=== PATIENT | male | born 1950 | race Caucasian/White ===

== ENCOUNTER 2017-07-16 21:03 | Emergency (ER) | payer OTHER ==
[2017-07-16] MEDS ORDERED: WATER FOR INJ,STERILE 10 ML IM ONE (21:04)
[2017-07-16] MEDS ORDERED: VECURONIUM 10 MG/VIAL IV ONE (21:04)
[2017-07-16] MEDS ORDERED: ETOMIDATE 20 MG/10 ML VIAL IV ONE (21:04)
[2017-07-16] MEDS ORDERED: LORazepam 2 MG/ML VIAL ONE (21:04)
--- OUTSIDE RECORDS SUMMARY | 2017-07-16 21:06 | XMS REPORT | Clinical Summary ---
:1950 Author Organization [facility] Address [address] [place] [address] Phone Care Team Providers Name Role Phone Unavailable Primary Care Provider Unavailable Allergies Active Allergy Reactions Severity Noted Date Comments Lisinopril Anaphylaxis High 07/27/2015 Amlodipine Anaphylaxis High 07/27/2015 Hydrochlorothiazide Hives 07/27/2015 Current Medications Prescription Sig. Disp. Refills Start Date End Date Status aspirin 81 MG EC Take 81 mg by Active tablet mouth daily. carvedilol (COREG) Take 25 mg by Active 3.125 MG tablet mouth 2 (two) times daily Takes 2 tab twice a day. losartan (COZAAR) Take 100 mg by Active 25 MG tablet mouth nightly . levETIRAcetam Take by mouth 2 Active (KEPPRA) 500 MG (two) times tablet daily. atorvastatin Take 80 mg by Active (LIPITOR) 10 MG mouth daily . tablet budesonide-formoter Inhale 2 puffs Active ol (SYMBICORT) by mouth via 160-4.5 inhaler 2 (two) mcg/actuation times daily. inhaler cholecalciferol, Take 50,000 Active vitamin D3, 50,000 Units by mouth unit Tab once a week. hydrOXYzine Take 25 mg by Active (ATARAX) 25 MG mouth daily as tablet needed (sleep). clopidogrel Take 75 mg by Active (PLAVIX) 75 mg mouth daily. tablet isosorbide Take 90 mg by Active mononitrate (IMDUR) mouth daily. 30 MG 24 hr tablet melatonin 3 mg Tab Take 10 mg by Active tablet mouth nightly. carvedilol (COREG) Take 2 tablets 60 tablet 1 08/22/2015 25 MG tablet (50 mg total) 7 by mouth 2 (two) times daily with breakfast and dinner. hydrALAZINE Take 1 tablet 90 tablet 1 08/22/2015 (APRESOLINE) 100 MG (100 mg total) 7 tablet by mouth 3 (three) times daily. DULoxetine Take 1 capsule 30 capsule 0 08/22/2015 (CYMBALTA) 20 MG (20 mg total) 7 capsule by mouth daily. isosorbide Take 1 tablet 30 tablet 0 08/22/2015 mononitrate (IMDUR) (60 mg total) 7 60 MG 24 hr tablet by mouth daily. losartan (COZAAR) Take 1 tablet 30 tablet 0 08/22/2015 100 MG tablet (100 mg total) 7 by mouth daily. NIFEdipine (ADALAT Take 1 tablet 30 tablet 0 08/22/2015 CC) 90 MG 24 hr (90 mg total) 7 tablet by mouth daily. isosorbide Take by mouth Discontinued mononitrate daily. 8 (ISMO,MONOKET) 10 MG tablet Active Problems Problem Noted Date Generalized tonic-clonic seizure ([facility]) 05/26/2017 Chest pain with moderate risk of acute coronary syndrome 05/26/2017 Hyponatremia 08/18/2015 Abdominal aortic aneurysm without rupture ([facility]) 08/17/2015 AAA (abdominal aortic aneurysm) ([facility]) 08/04/2015 PVD (peripheral vascular disease) ([facility]) 08/04/2015 CVA (cerebral vascular accident) ([facility]) 08/04/2015 HTN (hypertension) 08/04/2015 Hyperlipidemia Anxiety Encounters Date Type Specialty Care Team Description 05/26/2017 - Emergency General Internal Christiano Lopez Abdominal aortic 05/27/2017 Medicine MD Aldo aneurysm without Mary, Yashash D rupture ([facility]) (Primary Dx);Generalized tonic-clonic seizure ([facility]);Chest pain with moderate risk of acute coronary syndrome;Abdominal aortic aneurysm (AAA) without rupture ([facility]);Essential hypertension;Hyperlipid emia, unspecified hyperlipidemia type;Hyponatremia;JOAN (acute kidney injury) ([facility]);Cerebrovascular accident (CVA), unspecified mechanism ([facility]);PVD (peripheral vascular disease) ([facility]) 05/26/2017 Orders Only General Internal Medicine after 07/15/2016 Family History Medical History Relation Name Comments Cancer Father Cancer Mother Relation Name Status Comments Father Mother Social History Tobacco Use Types Packs/Day Years Used Date Former Smoker Quit: 07/26/1974 Smokeless Tobacco: Former User Alcohol Use Drinks/Week oz/Week Comments No Sex Assigned at Date Recorded Not on file Last Filed Vital Signs Vital Sign Reading Time Taken Blood Pressure 155/72 05/27/2017 11:21 AM CDT Pulse 61 05/27/2017 11:21 AM CDT Temperature 36.9 C (98.5 F) 05/27/2017 11:21 AM CDT Respiratory Rate 17 05/27/2017 11:21 AM CDT Oxygen Saturation 96% 05/27/2017 11:21 AM CDT Inhaled Oxygen Concentration - - Weight 99.8 kg (220 lb) 05/26/2017 10:53 AM CDT Height 177.8 cm (5' 10") 05/26/2017 10:53 AM CDT Body Mass Index 31.57 05/26/2017 10:53 AM CDT Plan of Treatment Health Maintenance Due Date Last Done Comments INFLUENZA VACCINE 11/26/2017 Results RHYTHM STRIP - SCAN (05/29/2017 8:30 AM)Calcium, Ionized (05/27/2017 4:00 AM) Component Value Ref Range Calcium, Ion 1.08 (L) 1.12 - 1.27 mmol/L pH, Blood 7.36 Specimen Performing Laboratory Blood [facility] [address] [address] CBC with platelet count + automated diff (05/27/2017 4:00 AM)Only the most recent of2 resultswithin the time period is included. Component Value Ref Range WBC 7.0 3.5 - 10.5 K/L RBC 4.05 (L) 4.63 - 6.08 M/L Hemoglobin 11.9 (L) 13.7 - 17.5 GM/DL Hematocrit 36.7 (L) 40.1 - 51.0 % MCV 90.6 79.0 - 92.2 fL MCH 29.4 25.7 - 32.2 pg MCHC 32.4 32.3 - 36.5 GM/DL RDW 12.8 11.6 - 14.4 % Platelets 199 150 - 450 K/CU MM MPV 10.1 9.4 - 12.4 fL nRBC 0 0 - 0 /100 WBC % Neutros 69 % % Lymphs 11 % % Monos 13 % % Eos 6 % % Baso 1 % # Neutros 4.82 1.78 - 5.38 K/L # Lymphs 0.73 (L) 1.32 - 3.57 K/L # Monos 0.91 (H) 0.30 - 0.82 K/L # Eos 0.42 0.04 - 0.54 K/L # Baso 0.08 0.01 - 0.08 K/L Immature Granulocytes-Relative 0 0 - 1 % Specimen Performing Laboratory Blood [address] [address] Troponin I (05/27/2017 4:00 AM)Only the most recent of2 resultswithin the time period is included. Component Value Ref Range Troponin I 0.03 0.00 - 0.03 ng/mL Specimen Performing Laboratory Blood [address] [address] Narrative Troponin I (TnI) levels must be interpreted in the context of the presenting symptoms and the clinical findings. Elevated TnI levels indicate myocardial damage, but are not specific for ischemic heart disease. Elevated TnI levels are seen in patients with other cardiac conditions (including myocarditis and congestive heart failure), and slight TnI elevations occur in patients with other conditions, including sepsis, renal failure, acidosis, acute neurological disease, and persistent tachyarrhythmia. Prothrombin time/INR (05/27/2017 4:00 AM) Component Value Ref Range Protime 14.5 11.7 - 14.7 seconds INR 1.1 <=5.9 Specimen Performing Laboratory Blood [address] [address] Narrative RECOMMENDED COUMADIN/WARFARIN INR THERAPY RANGES STANDARD DOSE: 2.0 - 3.0 Includes: PROPHYLAXIS for venous thrombosis, systemic embolization; TREATMENT for venous thrombosis and/or pulmonary embolus. HIGH RISK: Target INR is 2.5-3.5 for patients with mechanical heart valves. CBC with platelet count + automated diff (05/27/2017 4:00 AM)Only the most recent of2 resultswithin the time period is included. Specimen Performing Laboratory Blood Narrative The following orders were created for panel order CBC with platelet count + automated diff. Procedure Abnormality Status --------- ------ CBC with platelet count ...[[id number]]AbnormalFinal result Please view results for these tests on the individual orders. Magnesium (05/27/2017 4:00 AM) Component Value Ref Range Magnesium 2.5 1.6 - 2.6 mg/dL Specimen Performing Laboratory Blood [address] [address] Hepatic function panel (05/27/2017 4:00 AM) Component Value Ref Range Protein, Total 6.5 6.0 - 8.3 gm/dL Albumin 3.6 3.5 - 5.0 g/dL Total Bilirubin 0.5 0.2 - 1.2 mg/dL Bilirubin, Direct 0.3 0.1 - 0.5 mg/dL Alkaline Phosphatase 72 40 - 150 U/L AST 27 5 - 34 U/L ALT 25 6 - 55 U/L Specimen Performing Laboratory Blood [address] [address] Lipid panel (05/27/2017 4:00 AM) Component Value Ref Range Triglycerides 74 mg/dL Cholesterol 111 mg/dL HDL 34 mg/dL LDL Calculated 62 mg/dL Specimen Performing Laboratory Blood [address] [address] Narrative Triglyceride Reference Range: Low Risk <150 [id number] High Risk 200-499 Very High Risk>=500 Cholesterol Reference Range: Low Risk <200 Mojdnslxoe558-600 High Risk>240 HDL Cholesterol Reference Range: Low Risk >=60 High Risk <40 LDL Cholesterol Reference Range: Optimal<100 Near Ovzziep855-741 [id number] Jxeh475-726 Very High >=190 Basic metabolic panel (05/27/2017 4:00 AM)Only the most recent of2 resultswithin the time period is included. Component Value Ref Range Sodium 135 (L) 136 - 145 meq/L Potassium 4.0 3.5 - 5.1 meq/L Chloride 103 98 - 107 meq/L CO2 24 22 - 29 meq/L BUN 20 7 - 21 mg/dL Creatinine 1.40 (H) 0.57 - 1.25 mg/dL Glucose 132 (H) 70 - 105 mg/dL Calcium 8.6 8.4 - 10.2 mg/dL EGFR 51Comment: ESTIMATED GFR IS NOT ACCURATE mL/min/1.73 sq m CREATININE CLEARANCE IN PREDICTING GLOMERULAR FILTRATION RATE. ESTIMATED GFR IS NOT APPLICABLE FOR DIALYSIS PATIENTS. Specimen Performing Laboratory Blood [address] [address] Rapid drug screen, urine (05/26/2017 5:44 PM) Component Value Ref Range Barbiturate Screen Negative Negative Benzodiazepine Screen Positive (A) Negative Cocaine (Metab.) Screen Negative Negative Methadone Screen Negative Negative Opiate Screen Positive (A) Negative Cannabinoid Screen Negative Negative Amph/Methamph Screen Negative Negative Phencyclidine Screen Negative Negative Oxycodone Screen Negative Negative Specimen Performing Laboratory Urine - Urine, Voided [address] [address] Narrative DRUGCUTOFF CONC. Cocaine 300 ng/mL Qhntrxnddii40 ng/mL Plslxftrjkyfln361 ng/mL Barbiturate 200 ng/mL Zrgeoeckypoel50 ng/mL Cebzvy324 ng/mL Methadone 300 ng/mL Amphetamine/ 1000 ng/mL Methamphetamine Oxycodone 300 ng/mL This assay provides an unconfirmed qualitative test result for the clinical management of patients in emergency situations. Chain of custody not maintained. Some sbdv-enb-wqsharo medications, as well as adulterants, may cause inaccurate results. Clinical correlation should be applied. A more comprehensive drug screen or confirmation of a detected drug may be performed upon request. Urinalysis w/Microscopic (05/26/2017 5:44 PM) Component Value Ref Range Color, UA Light Yellow Clarity, UA Clear Specific Whitman, UA 1.010 1.001 - 1.035 pH, UA 5.5 5.0 - 8.0 Protein, UA 10 mg/dL (A) Negative Glucose, UA Negative Negative Ketones, UA Negative Negative Bilirubin, UA Negative Negative Blood, UA Negative Negative Nitrite, UA Negative Negative Leukocytes, UA Negative Negative Urobilinogen, UA 0.2 0.2 - 1.0 mg/dL RBC, UA 5 /HPF WBC, UA 1 /HPF Squam Epithel, UA <1 /HPF Specimen Source Urine, Voided Specimen Performing Laboratory Urine - Urine, Voided [address] [address] XR chest 1 view portable / bedside (05/26/2017 5:32 PM) Specimen Performing Laboratory GE RIS Narrative FINAL REPORT TECHNIQUE: Frontal view of the chest. INDICATION: 66-year-old man with seizures. COMPARISON: Chest radiographs 07/27/2015. FINDINGS: LINES/TUBES: Implanted cardiac device in the soft tissues of the left chest with intact leads which terminate in the expected regions of the right atrium and right ventricle. LUNGS: Mild prominence of interstitial markings bilaterally. Streaky atelectasis in both lung bases. Azygous fissure, normal variant. PLEURA: No pneumothorax or significant pleural effusion. HEART AND MEDIASTINUM: The cardiomediastinal silhouette is enlarged. Ectatic/tortuous thoracic aorta. SOFT TISSUES AND BONES: Degenerative changes of the visualized spine. Soft tissues are unremarkable. IMPRESSION: No acute cardiopulmonary abnormalities. Signed: Jamin Odell MD Report Verified Date/Time:05/26/2017 17:40:45 Reading Location: [facility] C013Y CT Body Reading Room Procedure Note Interface, External Ris In - 05/26/2017 5:43 PM CDT FINAL REPORT TECHNIQUE: Frontal view of the chest. INDICATION: 66-year-old man with seizures. COMPARISON: Chest radiographs 07/27/2015. FINDINGS: LINES/TUBES: Implanted cardiac device in the soft tissues of the left chest with intact leads which terminate in the expected regions of the right atrium and right ventricle. LUNGS: Mild prominence of interstitial markings bilaterally. Streaky atelectasis in both lung bases. Azygous fissure, normal variant. PLEURA: No pneumothorax or significant pleural effusion. HEART AND MEDIASTINUM: The cardiomediastinal silhouette is enlarged. Ectatic/tortuous thoracic aorta. SOFT TISSUES AND BONES: Degenerative changes of the visualized spine. Soft tissues are unremarkable. IMPRESSION: No acute cardiopulmonary abnormalities. Signed: Jamin Odell MD Report Verified Date/Time: 05/26/2017 17:40:45 Reading Location: [facility] [address] Body Reading Room brain without IV contrast (05/26/2017 2:26 PM) Specimen Performing Laboratory RIS Narrative FINAL REPORT CT head without contrast. Reason for exam: Seizures new or progressive Comparisons: No priors Discussion: Multiple axial CT images of the head are provided without contrast evaluated in brain and bone windows. This exam was performed according to our departmental dose optimization program which includes automated exposure control, adjustment of the mA and/or kV according to patient's size and/or use of iterative reconstructive technique. There is a old left occipital and medial temporal lobe infarct, in [employer] territory. A small to moderate volume left frontal lobe infarct is also noted. The varma-white differentiation is otherwise maintained. Old lacunar infarcts in the left caudate, thalamus as well as a tiny old left cerebellar infarct are also present. There is no CT evidence of intracranial hemorrhage, mass-effect, hydrocephalus, shift, or extra-axial collections. There is intracranial vascular calcification The visualized orbital contents, bones and surrounding soft tissues are unremarkable. There is mild mucosal thickening in the right maxillary sinus. The visualized paranasal sinuses, and the tympanomastoid cavities are otherwise clear. Impressions: No CT evidence of acute intracranial process. Chronic ischemic changes as described. Signed: Leonie Melo MD Report Verified Date/Time:05/26/2017 14:49:24 Reading Location: [address] Neuro Reading Room Procedure Note Interface, External Ris In - 05/26/2017 2:51 PM CDT FINAL REPORT CT head without contrast. Reason for exam: Seizures new or progressive Comparisons: No priors Discussion: Multiple axial CT images of the head are provided without contrast evaluated in brain and bone windows. This exam was performed according to our departmental dose optimization program which includes automated exposure control, adjustment of the mA and/or kV according to patient's size and/or use of iterative reconstructive technique. There is a old left occipital and medial temporal lobe infarct, in [employer] territory. A small to moderate volume left frontal lobe infarct is also noted. The varma-white differentiation is otherwise maintained. Old lacunar infarcts in the left caudate, thalamus as well as a tiny old left cerebellar infarct are also present. There is no CT evidence of intracranial hemorrhage, mass-effect, hydrocephalus, shift, or extra-axial collections. There is intracranial vascular calcification The visualized orbital contents, bones and surrounding soft tissues are unremarkable. There is mild mucosal thickening in the right maxillary sinus. The visualized paranasal sinuses, and the tympanomastoid cavities are otherwise clear. Impressions: No CT evidence of acute intracranial process. Chronic ischemic changes as described. Signed: Leonie Melo MD Report Verified Date/Time: 05/26/2017 14:49:24 Reading Location: [facility] C013V Neuro Reading Room 12 lead (05/26/2017 1:11 PM) Specimen Performing Laboratory GE MUSE Narrative Ventricular Rate 71 BPM Atrial Rate 71 BPM P-R Interval 218 ms QRS Duration 68 ms Q-T Interval 390 ms QTC Calculation(Bazett) 423 ms P [place] 46 degrees R [place] 9 degrees T [place] 31 degrees Poor data quality, interpretation may be adversely affected Sinus rhythm with 1st degree A-V block Otherwise normal ECG When compared with ECG of 17-AUG-2015 00:02, [place] interval has increased Nonspecific T wave abnormality has replaced inverted T waves in Lateral leads Confirmed by MD STALLWORTH MAJID ([id number]) on 05/27/2017 10:56:40 AM Procedure Note Interface, External Ris In - 05/27/2017 10:56 AM CDT Ventricular Rate 71 BPM Atrial Rate 71 BPM P-R Interval 218 ms QRS Duration 68 ms Q-T Interval 390 ms QTC Calculation(Bazett) 423 ms P [place] 46 degrees R [place] 9 degrees T [place] 31 degrees Poor data quality, interpretation may be adversely affected Sinus rhythm with 1st degree A-V block Otherwise normal ECG When compared with ECG of 17-AUG-2015 00:02, [place] interval has increased Nonspecific T wave abnormality has replaced inverted T waves in Lateral leads Confirmed by MD STALLWORTH MAJID ([id number]) on 05/27/2017 10:56:40 AM after 07/15/2016
--- OUTSIDE RECORDS SUMMARY | 2017-07-16 21:06 | XMS REPORT ---
:1950 [facility] [address] [place] [id number] Care Team Providers Name Role Phone SAHARA DICKENS Unavailable Unavailable Problems This patient has no known problems. Allergies, Adverse Reactions, Alerts This patient has no known allergies or adverse reactions. Medications This patient has no known medications. Results Test Description Test Time Test Comments Text Results Atomic Results Result Comments CALCIUM, IONIZED 2017-05-27 06:28:00 Test Item Value Reference Range Comments CALCIUM IONIZED (BEAKER) (test bplt=337) 1.08 mmol/L 1.12-1.27 PH, BLOOD (BEAKER) (test nqmi=7562) 7.36 [id number] 04:50:00 Test Item Value Reference Range Comments MAGNESIUM (BEAKER) (test hvyf=434) 2.5 mg/dL 1.6-2.6 BASIC METABOLIC [id number] 04:50:00 Test Item Value Reference Range Comments SODIUM (BEAKER) (test 135 meq/L 136-145 uybz=553) POTASSIUM (BEAKER) (test 4.0 meq/L 3.5-5.1 jdct=493) CHLORIDE (BEAKER) (test 103 meq/L 98-107 cctc=001) CO2 (BEAKER) (test 24 meq/L 22-29 bvkf=998) BLOOD UREA NITROGEN 20 mg/dL 7-21 (BEAKER) (test jolv=652) CREATININE (BEAKER) (test 1.40 mg/dL 0.57-1.25 hckh=517) GLUCOSE RANDOM (BEAKER) 132 mg/dL 70-105 (test invb=515) CALCIUM (BEAKER) (test 8.6 mg/dL 8.4-10.2 mzqe=942) EGFR (BEAKER) (test 51 mL/min/1.73 sq m ESTIMATED GFR IS NOT dbzi=0352) ACCURATE CREATININE CLEARANCE IN PREDICTING GLOMERULAR FILTRATION RATE. ESTIMATED GFR IS NOT APPLICABLE FOR DIALYSIS PATIENTS. LIPID [id number] 04:50:00 Test Item Value Reference Range Comments TRIGLYCERIDES (BEAKER) (test jkcv=127) 74 mg/dL CHOLESTEROL (BEAKER) (test gted=223) 111 mg/dL HDL CHOLESTEROL (BEAKER) (test ulcs=303) 34 mg/dL LDL CHOLESTEROL CALCULATED (BEAKER) (test 62 mg/dL mpws=541) Triglyceride Reference Range: Low Risk <150 Borderline 150- 199 High Risk 200-499 Very High Risk >=500Cholesterol Reference Range: Low Risk <200 Borderline 200-239 High Risk > 240HDL Cholesterol Reference Range: Low Risk >=60 High Risk <40LDL Cholesterol Reference Range: Optimal <100 Near Optimal 100-129 Borderline 130-159 High 160-189 Very High >=190HEPATIC FUNCTION [id number] 04:50:00 Test Item Value Reference Range Comments TOTAL PROTEIN (BEAKER) (test dhev=627) 6.5 gm/dL 6.0-8.3 ALBUMIN (BEAKER) (test apwx=9716) 3.6 g/dL 3.5-5.0 BILIRUBIN TOTAL (BEAKER) (test zywd=508) 0.5 mg/dL 0.2-1.2 BILIRUBIN DIRECT (BEAKER) (test cggp=387) 0.3 mg/dL 0.1-0.5 ALKALINE PHOSPHATASE (BEAKER) (test ormz=714) 72 U/L 40-150 AST (SGOT) (BEAKER) (test flug=376) 27 U/L 5-34 ALT (SGPT) (BEAKER) (test yrea=448) 25 U/L 6-55 TROPONIN [id number] 04:49:00 Test Item Value Reference Range Comments TROPONIN I (BEAKER) (test vipt=418) 0.03 ng/mL 0.00-0.03 Troponin I (TnI) levels must be interpreted [...] failure, acidosis, acute neurological disease, and persistent tachyarrhythmia.PROTHROMBIN [id number] 04:19:00 Test Item Value Reference Range Comments PROTIME (BEAKER) (test volk=483) 14.5 seconds 11.7-14.7 INR (BEAKER) (test qgnd=434) 1.1 <=5.9 RECOMMENDED COUMADIN/WARFARIN INR THERAPY RANGESSTANDARD DOSE: 2.0 - 3.0 Includes: PROPHYLAXIS forvenous thrombosis, systemic embolization; TREATMENT for venous thrombosis and/or pulmonary embolus.HIGH RISK: Target INR is 2.5-3.5 for patients with mechanical heart valves.CBC W/PLT COUNT & AUTO [id number] 04:14:00 Test Item Value Reference Range Comments WHITE BLOOD CELL COUNT (BEAKER) (test twtt=465) 7.0 K/ L 3.5-10.5 RED BLOOD CELL COUNT (BEAKER) (test updr=098) 4.05 M/ L 4.63-6.08 HEMOGLOBIN (BEAKER) (test lcba=602) 11.9 GM/DL 13.7-17.5 HEMATOCRIT (BEAKER) (test yvkw=301) 36.7 % 40.1-51.0 MEAN CORPUSCULAR VOLUME (BEAKER) (test kbzi=246) 90.6 fL 79.0-92.2 MEAN CORPUSCULAR HEMOGLOBIN (BEAKER) (test 29.4 pg 25.7-32.2 zgtd=948) MEAN CORPUSCULAR HEMOGLOBIN CONC (BEAKER) (test 32.4 GM/DL 32.3-36.5 wgtj=960) RED CELL DISTRIBUTION WIDTH (BEAKER) (test 12.8 % 11.6-14.4 dfiv=075) PLATELET COUNT (BEAKER) (test ymhd=339) 199 K/CU MM 150-450 MEAN PLATELET VOLUME (BEAKER) (test bfjt=054) 10.1 fL 9.4-12.4 NUCLEATED RED BLOOD CELLS (BEAKER) (test 0 /100 WBC 0-0 eslq=873) NEUTROPHILS RELATIVE PERCENT (BEAKER) (test 69 % sxgt=969) LYMPHOCYTES RELATIVE PERCENT (BEAKER) (test 11 % onqf=614) MONOCYTES RELATIVE PERCENT (BEAKER) (test 13 % dwki=217) EOSINOPHILS RELATIVE PERCENT (BEAKER) (test 6 % pvrb=787) BASOPHILS RELATIVE PERCENT (BEAKER) (test 1 % pmeh=844) NEUTROPHILS ABSOLUTE COUNT (BEAKER) (test 4.82 K/ L 1.78-5.38 vqkh=739) LYMPHOCYTES ABSOLUTE COUNT (BEAKER) (test 0.73 K/ L 1.32-3.57 fnwf=018) MONOCYTES ABSOLUTE COUNT (BEAKER) (test 0.91 K/ L 0.30-0.82 eydc=194) EOSINOPHILS ABSOLUTE COUNT (BEAKER) (test 0.42 K/ L 0.04-0.54 hijp=484) BASOPHILS ABSOLUTE COUNT (BEAKER) (test 0.08 K/ L 0.01-0.08 jjff=442) IMMATURE GRANULOCYTES-RELATIVE PERCENT (BEAKER) 0 % 0-1 (test vedf=2038) TROPONIN [id number] 18:23:00 Test Item Value Reference Range Comments TROPONIN I (BEAKER) (test wnyt=091) 0.02 ng/mL 0.00-0.03 Troponin I (TnI) levels must be interpreted [...] failure, acidosis, acute neurological disease, and persistent tachyarrhythmia.URINALYSIS W/ [id number] 18: 19:00 Test Item Value Reference Range Comments COLOR (BEAKER) (test pvfv=451) Light Yellow CLARITY (BEAKER) (test cyzb=216) Clear SPECIFIC GRAVITY UA (BEAKER) (test jmoy=933) 1.010 1.001-1.035 PH UA (BEAKER) (test ilbj=561) 5.5 5.0-8.0 PROTEIN UA (BEAKER) (test rxyj=898) 10 mg/dL Negative GLUCOSE UA (BEAKER) (test ojjx=722) Negative Negative KETONES UA (BEAKER) (test eyyb=676) Negative Negative BILIRUBIN UA (BEAKER) (test vfne=191) Negative Negative BLOOD UA (BEAKER) (test mdft=647) Negative Negative NITRITE UA (BEAKER) (test kqaj=408) Negative Negative LEUKOCYTE ESTERASE UA (BEAKER) (test twan=353) Negative Negative UROBILINOGEN UA (BEAKER) (test ovhz=055) 0.2 mg/dL 0.2-1.0 RBC UA (BEAKER) (test vudk=384) 5 /HPF WBC UA (BEAKER) (test euiu=134) 1 /HPF SQUAMOUS EPITHELIAL (BEAKER) (test ilmn=819) < /HPF SOURCE(BEAKER) (test tkli=2732) Urine, Voided RAPID DRUG SCREEN, [id number] 18:19:00 Test Item Value Reference Range Comments BARBITURATE URINE (BEAKER) (test bdxc=061) Negative Negative BENZODIAZEPINE SCREEN URINE (BEAKER) (test Positive Negative voan=147) COCAINE (METAB.) SCREEN (BEAKER) (test qrzr=8016) Negative Negative METHADONE SCREEN (BEAKER) (test cbgq=8187) Negative Negative OPIATE SCREEN URINE (BEAKER) (test vbbn=059) Positive Negative CANNABINOID SCREEN URINE (BEAKER) (test tjsl=285) Negative Negative AMPH/METHAMPH SCREEN (BEAKER) (test rwws=0069) Negative Negative PHENCYCLIDINE SCREEN URINE (BEAKER) (test mjgo=577) Negative Negative OXYCODONE SCREEN URINE (BEAKER) (test wchb=2221) Negative Negative DRUG CUTOFF CONC.Cocaine 300 ng/mL Cannabinoid 50 ng/mL Benzodiazepine 200 ng/mLBarbiturate 200 ng/ mLPhencyclidine 25 ng/mLOpiate 300 ng/mLMethadone 300 ng/mLAmphetamine/ 1000 ng/mL MethamphetamineOxycodone 300 ng/mLThis assay provides an unconfirmed qualitative test result for the clinical management of patients in emergency situations. Chain of custody not maintained. Some disb-wja-chpvikv medications, as well as adulterants, may cause inaccurate results. Clinical correlation should be applied. A more comprehensive drug screen or confirmation of a detected drug may be performed upon request.RAD, CHEST, 1 VIEW, NON [id number] 17:40:00Reason for exam:-&gt ;SEIZURESShould this be performed at the bedside?->YesFINAL REPORT TECHNIQUE: Frontal view of the chest. INDICATION: 66-year-old man with seizures. COMPARISON: Chest radiographs 07/27/2015. FINDINGS: LINES/TUBES: Implanted cardiac device in the soft tissues of the left chest with intact leads which terminate in the expected regionsof the right atrium and right ventricle. LUNGS: Mild prominence of interstitial markings bilaterally. Streaky atelectasis in both lung bases. Azygous fissure, normal variant. PLEURA: No pneumothorax orsignificant pleural effusion. HEART AND MEDIASTINUM: The cardiomediastinal silhouette is enlarged. Ectatic/tortuous thoracic aorta. SOFT TISSUES AND BONES: Degenerative changes of the visualized spine.Soft tissues are unremarkable. IMPRESSION:No acute cardiopulmonary abnormalities. Signed: Jamin Odell MDReport Verified Date/Time: 05/26/2017 17:40:45 Reading Location: [facility] C0Y CT Body Reading Room CT, BRAIN, WITHOUT [id number] 14 :49:00Reason for exam:->SEIZURESWhat is the patient's sedation requirement?-& gt;No SedationFINAL REPORT CT head without contrast. Reason for exam: Seizures new or progressive Comparisons: No priorsDiscussion: Multiple axial CT images of the head are provided without contrast evaluated in brain and bone windows. This exam was performed according to our departmental dose optimization program which includes automated exposure control, adjustment of the mA and/or kV according to patient's size and/or use of iterative reconstructive technique. 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 A small to moderate volume left frontal lobe infarct is also noted. The varma-white differentiation is otherwise maintained. Old lacunar infarcts in the left caudate, thalamus as well as a tiny old left cerebellar infarct are also present. There isno CT evidence of intracranial hemorrhage, mass-effect, hydrocephalus, shift, or extra-axial collections. There is intracranial vascular calcification The visualized orbital contents, bones and surrounding soft tissues are unremarkable. There is mild mucosal thickening in the right maxillary sinus. The visualized paranasal sinuses, and the tympanomastoid cavities are otherwise clear. Impressions: NoCT evidence of acute intracranial process. Chronic ischemic changes as described. Signed: Leonie Melo MDReport Verified Date/Time: 05/26/2017 14:49:24 Reading Location: [facility] C013V Neuro Reading Room Electronically signed by: LEONIE MELO M.D. on 02:49 PMTHE [facility] METABOLIC [id number] 12:04:00 Test Item Value Reference Range Comments SODIUM (BEAKER) (test 135 meq/L 136-145 pzdr=609) POTASSIUM (BEAKER) (test 4.0 meq/L 3.5-5.1 mtli=145) CHLORIDE (BEAKER) (test 98 meq/L 98-107 mslw=212) CO2 (BEAKER) (test 20 meq/L 22-29 wjyb=515) BLOOD UREA NITROGEN 23 mg/dL 7-21 (BEAKER) (test qpgl=020) CREATININE (BEAKER) (test 1.40 mg/dL 0.57-1.25 ucgd=037) GLUCOSE RANDOM (BEAKER) 177 mg/dL 70-105 (test mwsv=808) CALCIUM (BEAKER) (test 9.3 mg/dL 8.4-10.2 xfqo=870) EGFR (BEAKER) (test 51 mL/min/1.73 sq m ESTIMATED GFR IS NOT ktgw=6805) ACCURATE CREATININE CLEARANCE IN PREDICTING GLOMERULAR FILTRATION RATE. ESTIMATED GFR IS NOT APPLICABLE FOR DIALYSIS PATIENTS. CBC W/PLT COUNT & AUTO [id number] 11:53:00 Test Item Value Reference Range Comments WHITE BLOOD CELL COUNT (BEAKER) (test evxj=554) 8.5 K/ L 3.5-10.5 RED BLOOD CELL COUNT (BEAKER) (test xtks=727) 4.37 M/ L 4.63-6.08 HEMOGLOBIN (BEAKER) (test iznz=269) 12.9 GM/DL 13.7-17.5 HEMATOCRIT (BEAKER) (test fckz=781) 39.6 % 40.1-51.0 MEAN CORPUSCULAR VOLUME (BEAKER) (test plep=383) 90.6 fL 79.0-92.2 MEAN CORPUSCULAR HEMOGLOBIN (BEAKER) (test 29.5 pg 25.7-32.2 yzvj=231) MEAN CORPUSCULAR HEMOGLOBIN CONC (BEAKER) (test 32.6 GM/DL 32.3-36.5 txbc=952) RED CELL DISTRIBUTION WIDTH (BEAKER) (test 12.6 % 11.6-14.4 xlqu=168) PLATELET COUNT (BEAKER) (test qnnh=604) 228 K/CU MM 150-450 MEAN PLATELET VOLUME (BEAKER) (test putu=608) 10.1 fL 9.4-12.4 NUCLEATED RED BLOOD CELLS (BEAKER) (test 0 /100 WBC 0-0 jqxa=533) NEUTROPHILS RELATIVE PERCENT (BEAKER) (test 81 % ztcq=492) LYMPHOCYTES RELATIVE PERCENT (BEAKER) (test 6 % ypiy=617) MONOCYTES RELATIVE PERCENT (BEAKER) (test 7 % fzen=356) EOSINOPHILS RELATIVE PERCENT (BEAKER) (test 5 % rrsn=044) BASOPHILS RELATIVE PERCENT (BEAKER) (test 1 % umph=252) NEUTROPHILS ABSOLUTE COUNT (BEAKER) (test 6.92 K/ L 1.78-5.38 auad=044) LYMPHOCYTES ABSOLUTE COUNT (BEAKER) (test 0.48 K/ L 1.32-3.57 jwkr=615) MONOCYTES ABSOLUTE COUNT (BEAKER) (test 0.59 K/ L 0.30-0.82 ixdo=812) EOSINOPHILS ABSOLUTE COUNT (BEAKER) (test 0.40 K/ L 0.04-0.54 pcqf=853) BASOPHILS ABSOLUTE COUNT (BEAKER) (test 0.08 K/ L 0.01-0.08 rvqy=956) IMMATURE GRANULOCYTES-RELATIVE PERCENT (BEAKER) 1 % 0-1 (test htlw=8897)
[2017-07-16] MEDS ORDERED: RSI MEDICATION KIT IV ONE (21:09)
[2017-07-16] MEDS ORDERED: PROPOFOL 1,000 MG/100 ML VIAL IV ONE (21:20)
[2017-07-16] MEDS ORDERED: MIDAZOLAM HCL 2 MG/2 ML INJ ONE ×2 (21:20→23:31)
[2017-07-16 21:28] LABS: Absolute Lymphocytes (CBC) 2.8 K/uL (0.7-4.9); Absolute Monocytes 1.8 K/uL (0.1-1.3); Absolute Neutrophil 6.6 K/uL (1.8-8.0); Basophils % 1.1 % (0-1.3); Eosinophils % 7.3 % (0-4.4); Hematocrit 44.6 % (39.6-49.0); MCV 92.6 fL (80-100); MPV 8.4 fL (7.6-11.3); Monocytes % 14.8 % (3.3-12.3); RBC Red Blood Cell Count 4.81 M/uL (4.33-5.43)
[2017-07-16 21:35] LABS: Protime INR 1.05
[2017-07-16 21:38] LABS: Potassium 4.4 mEq/L (3.6-5.0)
--- NOTE | 2017-07-16 21:49 | RAD REPORT ---
EXAM DESCRIPTION: CT - Ct Stroke Brain Wo Cont - 07/16/2017 9:41 pm CLINICAL HISTORY: CVA, seizure COMPARISON: 10/10/2016, 08/16/2015 TECHNIQUE: All CT scans are performed using dose optimization technique as appropriate and may inclu de automated exposure control or mA/KV adjustment according to patient size. FINDINGS: No intracranial hemorrhage, hydrocephalus or extra-axial fluid collection.Gliosis is seen in the left frontal lobe and left occipital lobe related to old infarct.No areas of brain edema or ev idence of midline shift. The paranasal sinuses and mastoids are clear. Opacification of posterior nasal airway seen. The ladonna rium is intact. IMPRESSION: No acute intracranial abnormality. If there is continued clinical concern for CVA, MR i maging of the brain would be recommended. The findings were discussed with Dr. Muhammad in the ER on 07-16-17 at 9:45 pm by telephone.
--- NOTE | 2017-07-16 21:53 | RAD REPORT ---
EXAM DESCRIPTION: RAD - Chest Single View - 07/16/2017 9:48 pm CLINICAL HISTORY: Respiratory failure COMPARISON: 10/10/2016 FINDINGS: Portable technique limits examination quality. Mild interstitial pulmonary edema is noted. The heart is upper limit normal in size. No displaced fra ctures.Tip of the endotracheal tube is above the faith. Enteric tube descends in the stomach. Dual l ead pacer device is in place.
--- NOTE | 2017-07-16 22:11 | EDPHYS ---
Physician Documentation [facility] Name: Foster Dale Age: 66 yrs Sex: Male : 1950 Arrival Date: 07/16/2017 Time: 21:07 Bed 2 Private MD: ED Physician Bertin Muhammad HPI: 07/16 21:26 This 66 yrs old Male presents to ER via Unassigned with complaints of S/S of tw4 Possible Stroke. 21:26 The patient's problem is reported as an apparent seizure, with the patient having tw4 multiple episodes, Episodes lasted less that one minute. Motor activity is described as generalized, Did not regain consciousness between episodes. Patient was Loss of pulse is unknown. Post-ictal symptoms: syncope, syncope. Onset: The symptoms/episode began/occurred just prior to arrival. Duration: This was a single incident. Context: the episode(s) was witnessed, by family, . The symptoms are alleviated by nothing. The symptoms are aggravated by nothing. Associated signs and symptoms: The patient has no apparent associated signs or symptoms. Patient's baseline: Neuro: alert and fully oriented, Motor: no deficits, Ambulation: walks without assistance, Speech: normal. The patient has not experienced similar symptoms in the past. Historical: - Allergies: 22:39 Demerol; aa1 22:39 Lisinopril; aa1 22:39 Norvasc; aa1 - Home Meds: 22:39 aspirin 81 mg Oral chew 1 tab once daily [Active]; atorvastatin 80 mg Oral tab 1 tab aa1 once daily [Active]; carvedilol 25 mg Oral tab 2 tab 2 times per day [Active]; losartan 100 mg oral tab once daily [Active]; nifedipine 90 mg Oral tr24 1 tab once daily [Active]; Symbicort inhalation 2 puffs 2 times per day [Active]; Vitamin D3 400 unit oral tab [Active]; levetiracetam 750 mg oral tab 1 tab 2 times per day [Active]; Plavix 75 mg Oral tab 1 tab once daily [Active]; isosorbide mononitrate 30 mg Oral Tb24 3 tabs once daily [Active]; - PMHx: 22:39 Aneurysm; cardiac arrest; CVA; High Cholesterol; Hypertension; Seizures; COPD; aa1 - PSHx: 22:39 pacemaker; aa1 - Immunization history:: Adult Immunizations unknown. - Social history:: Smoking status: unknown. ROS: 21:26 Unable to obtain ROS due to comatose state, obtunded state. tw4 Exam: 21:26 Chest/axilla: Normal chest wall appearance and motion. Nontender with no deformity. tw4 No lesions are appreciated. 21:26 Constitutional: The patient appears comatose, diaphoretic, postictal 21:26 Cardiovascular: Rate: tachycardic, Rhythm: regular. 21:26 Respiratory: the patient does not display signs of respiratory distress, Respirations: shallow respirations, Breath sounds: decreased breath sounds, are located in both bases. 21:26 Abdomen/GI: Inspection: distension, that is moderate, Bowel sounds: absent, Palpation: soft. 21:26 Musculoskeletal/extremity: Extremities: grossly normal except: There is no evidence of deformity, ecchymosis, laceration, rash, swelling. 21:26 Neuro: Orientation: unable to test, the patient is comatose, Mentation: unable to test, the patient is comatose, Cranial nerves: unable to test, the patient is comatose, Motor: unable to test, the patient is post-ictal, Sensation: unable to test, the patient is comatose, Gait: unable to assess, the patient is post-ictal, seizure activity, grand mal type is displayed. 07/17 00:02 Radiologist reports: old left infract nothing acute tw4 Vital Signs: 07/16 21:11 Pulse 114; Resp 20 A; Pulse Ox 95% on BVM; aa1 21:30 BP 181 / 100; Pulse 102; Resp 13; Pulse Ox 98% on ETT vent; mg2 21:46 BP 178 / 93; Pulse 103; Resp 13; Pulse Ox 98% on ETT vent; mg2 22:00 BP 144 / 80; Pulse 99; Resp 13; Pulse Ox 99% on ETT vent; mg2 22:15 BP 145 / 92; Pulse 102; Resp 13; Temp 99.6(R); Pulse Ox 100% on ETT vent; mg2 22:41 Weight 117 kg (R); mg2 22:51 BP 167 / 89; Pulse 100; Resp 15 A; Pulse Ox 97% on 100% FiO2 ETT vent; bb 23:00 BP 155 / 93; Pulse 98; Resp 16 A; Pulse Ox 97% on ETT vent; aa1 23:25 BP 142 / 98; Pulse 99; Resp 22; Pulse Ox 98% on ETT vent; aa1 NIH Stroke Scale Scores: 21:20 NIHSS Score: 19 aa1 Mario Alberto Coma Score: 20:59 Eye Response: spontaneous(4). Verbal Response: none(1). Motor Response: withdraws from aa1 pain(4). Total: 9. 21:26 Eye Response: none(1). Verbal Response: none(1). Motor Response: none(1). Total: 3. tw4 Procedures: 21:22 Intubation: Intubated orally using # 4 Yordan blade with 7.5 mm ETT. was successful tw4 on first attempt. Ventilated with Ambu bag. Cricoid pressure applied during procedure. Tube secured with ETT garg at right side of mouth Placement verified by CO2 detector with (+) color change, Patient tolerated well. MDM: 21:18 Patient medically screened. tw4 23:55 Differential diagnosis: CVA, TIA. Data reviewed: vital signs, nurses notes. Data tw4 interpreted: Pulse oximetry: Interpretation: normal. Counseling: I had a detailed discussion with the patient and/or guardian regarding: the historical points, exam findings, and any diagnostic results supporting the discharge/admit diagnosis, the presence of at least one elevated blood pressure reading (>120/80) during this emergency department visit, lab results, radiology results. Other consultation: Dr Bruce Tapia \[id number] accepted for trnasfer. ED course: Pt not a candidate for TPa due to seizure activity. 07/16 21:15 Order name: Basic Metabolic Panel; Complete Time: 21:47 rg2 07/16 21:48 Interpretation: Normal except: CL 97; GLUC 198; CO2 17; BUN 23; CRE 1.77; GFR 39. tw4 07/16 21:15 Order name: CBC with Diff; Complete Time: 21:47 rg2 07/16 21:48 Interpretation: Normal except: MCV 92.6; WBC 12.3; EOSINOPHIL % 7.3; MN% 14.8. tw4 07/16 21:15 Order name: Protime (+inr); Complete Time: 21:47 rg2 07/16 21:48 Interpretation: Within normal limits. tw4 07/16 21:15 Order name: Ptt, Activated; Complete Time: 21:47 rg2 07/16 21:15 Order name: Urine Microscopic Only [facility] 07/16 23:26 Order name: Urine Dipstick--Ancillary (enter results) [facility] 07/16 21:15 Order name: CT Stroke Brain w/o Contrast [facility] 07/16 21:15 Order name: Stroke CXR 1 View [facility] 07/16 21:15 Order name: EKG; Complete Time: 21:15 [facility] 07/16 21:15 Order name: Accucheck; Complete Time: 22:27 [facility] 07/16 21:15 Order name: Cardiac monitoring; Complete Time: 21:46 [facility] 07/16 21:15 Order name: EKG - Nurse/Tech; Complete Time: :46 [facility] 07/16 21:15 Order name: IV Saline Lock; Complete Time: :46 [facility] 07/16 21:15 Order name: Labs collected and sent; Complete Time: 21:46 [facility] 07/16 21:15 Order name: NPO; Complete Time: 22:58 [facility] 07/16 21:15 Order name: O2 Per Protocol; Complete Time: :46 [facility] 07/16 21:15 Order name: O2 Sat Monitoring; Complete Time: :46 [facility] 07/16 21:15 Order name: Stroke Swallow Screen; Complete Time: 22:58 [facility] 07/16 21:15 Order name: Urine Dipstick-Ancillary (obtain specimen); Complete Time: 23:26 rg2 EC:22 Rate is 98 beats/min. Rhythm is regular. QRS [place] is Normal. AR interval is normal. QT tw4 interval is normal. No Q waves. T waves are Peaked in leads V3, V4, V5, V6. No ST changes noted. Clinical impression: NSR w/ Non-specific ST/T Changes. Interpreted by me. Reviewed by me. Administered Medications: 21:05 Drug: Ativan 2 mg Route: IVP; Site: left hand; aa1 21:35 Follow up: Response: No adverse reaction; Marked relief of symptoms aa1 21:13 Drug: Etomidate 20 mg Route: IVP; Site: left hand; aa1 21:30 Follow up: Response: No adverse reaction aa1 21:13 Drug: VecuroNIUM 10 mg Route: IVP; Site: left hand; aa1 21:30 Follow up: Response: No adverse reaction aa1 21:17 Drug: Versed 2 mg Route: IVP; Site: left hand; aa1 21:30 Follow up: Response: Marked relief of symptoms aa1 21:22 Drug: Propofol 5 mcg/kg/min Route: IV; Rate: calculated rate; Site: left hand; aa1 22:45 Follow up: Rate change 30 mcg/kg/min aa1 23:07 Follow up: IV Status: Infusion continued upon transfer aa1 23:10 Follow up: Rate change 40 mcg/kg/min aa1 22:30 CANCELLED (Physician Discretion): Fosphenytoin 20 mg pe/kg IV at calculated rate once; tw4 administer at a rate not to exceed 100 mg PE per minute 22:50 Not Given (Hemodynamic Parameters): Labetalol 20 mg IVP once over 2 mins bb 23:25 Drug: Keppra 1000 mg Route: IV; Rate: calculated rate; Site: right wrist; bb 23:46 Follow up: IV Status: Completed infusion; IV Intake: 100ml bb 23:35 Drug: Versed 2 mg Route: IVP; Site: left hand; bb 23:46 Follow up: Response: Marked relief of symptoms bb 23:45 CANCELLED (Other Intervention Used): Keppra 20 mg/kg IV at calculated rate once; not to bb exceed 2,500 milligrams administer over 15 minutes Disposition: 07/17 01:16 Chart complete. tw4 Disposition: 07/16/17 22:[address] [facility]. Diagnosis is Epilepsy, unspecified, intractable, with status epilepticus. - Reason for transfer: Higher level of care. - Accepting physician is Dr Mccann [facility]. - Condition is Serious. - Problem is new. - Symptoms are unchanged. Critical care time excluding procedures: 01:16 Critical care time: Bedside Care: 20 minutes, Consultation: 5 minutes, Family tw4 Intervention: 10 minutes. Total time: 35 minutes NIH Stroke Scale - NIH Stroke Score Date: 07/16/2017 Time: 21:20 Total Score = 19 1a. Level of Consciousness (LOC) - 3(Unresponsive) 1b. Level of Consciousness (LOC) (Year \T\ Age) - 2(Neither) 1c. LOC Commands (Open \T\ Closes Eyes/Aircraft Time Clerk) - 2(Neither) 2. Best Gaze (Lateral Gaze Paresis) - 0(Normal) 3. Visual Field Loss - 0(No visual loss) 4. Facial Palsy - 0(Normal) 5a. Left Arm: Motor (10-second hold) - 3(No effort against gravity) 5b. Right Arm: Motor (10-second hold) - 3(No effort against gravity) 6a. Left Leg: Motor (5-second hold - always test supine) - 3(No effort against gravity) 6b. Right Leg: Motor (5-second hold - always test supine) - 3(No effort against gravity) 7. Limb Ataxia (finger/nose \T\ heel/rose - test with eyes open) - 0(Absent) 8. Sensory Loss (pinprick arms/legs/face) - 0(Normal) 9. Best Language: Aphasia (description/naming/reading) - 0(No aphasia) 10. Dysarthria (speech clarity - read or repeat words) - 0(Normal) 11. Extinction and Inattention (visual/tactile/auditory/spatial/personal) - 0(No abnormality) Initials: aa Signatures: Dispatcher [employer] EDUT Sylvia Valdes 2 Glory Bejarano, RN RN aa1 Cierra Walls RN RN Bertin Bernard MD MD tw4 Corrections: (The following items were deleted from the chart) 07/16 22:30 21:50 Fosphenytoin 20 mg pe/kg IV at calculated rate once; administer at a rate tw4 not to exceed 100 mg PE per minute ordered. tw4 23:45 22:30 Keppra 20 mg/kg IV at calculated rate once; not to exceed 2,500 bb milligrams administer over 15 minutes ordered. tw4 07/17 00:09 07/16 22:10 07/16/2017 22:10 Transfer ordered to [address] Diagnosis is Epilepsy, unspecified, intractable, with status epilepticus. Reason for transfer: Higher level of care. Accepting physician is Dr Mccann [facility]. Condition is Serious. Problem is new. Symptoms are unchanged. tw4
--- NOTE | 2017-07-16 22:11 | ER ---
Nurse's Notes [facility] Name: Foster Dale Age: 66 yrs Sex: Male : 1950 Arrival Date: 07/16/2017 Time: 21:07 Bed 2 Private MD: Diagnosis: Epilepsy, unspecified, intractable, with status epilepticus Presentation: 07/16 20:59 Presenting complaint: EMS states: reported to them that pt called out to her at aa1 approx 2000 and when she went to the room he was not making any sense, speech was garbled and droop was reported to R side of face. Upon EMS arrival to residence pt remained altered and did not want to be taken to ED. EMS reports pt began seizing en route to hospital but no seizure activity noted upon arrival to ED. ERP met EMS in ambulance bay for pt eval and pt taken directly to CT. Transition of care: patient was not received from another setting of care. An acute neurological deficit is present. The patients blood glucose was checked prior to arriving to the hospital and was found to be hyperglycemic. Onset of symptoms was July 16, 2017 at 20:00. Risk Assessment: Do you want to hurt yourself or someone else? Other: pt unresponsive. Initial Sepsis Screen: Does the patient meet any 2 criteria? Altered Mental Status. HR > 90 bpm. Yes Does the patient have a suspected source of infection? No. Patient's initial sepsis screen is negative. Care prior to arrival: Glucose check: 166 Oxygen administered. via a non-rebreather mask. Activity prior to arrival: confused, seizure, unresponsive. 20:59 Method Of Arrival: EMS: [facility] aa1 20:59 Acuity: TERESE 1 aa1 Triage Assessment: 21:00 The onset of the patients symptoms was July 16, 2017 at 20:00. aa1 Stroke Activation: Symptom onset < 3 hours Physician: Stroke Attending; Name: ; Notified At: ; Arrived At: Physician: Chief Stroke Resident; Name: ; Notified At: ; Arrived At: Physician: Stroke Resident; Name: ; Notified At: ; Arrived At: Physician: ED Attending; Name: Jb; Notified At: 20:59; Arrived At: 20:59 Physician: ED Resident; Name: ; Notified At: ; Arrived At: Historical: - Allergies: 22:39 Demerol; aa1 22:39 Lisinopril; aa1 22:39 Norvasc; aa1 - Home Meds: 22:39 aspirin 81 mg Oral chew 1 tab once daily [Active]; atorvastatin 80 mg Oral tab 1 tab aa1 once daily [Active]; carvedilol 25 mg Oral tab 2 tab 2 times per day [Active]; losartan 100 mg oral tab once daily [Active]; nifedipine 90 mg Oral tr24 1 tab once daily [Active]; Symbicort inhalation 2 puffs 2 times per day [Active]; Vitamin D3 400 unit oral tab [Active]; levetiracetam 750 mg oral tab 1 tab 2 times per day [Active]; Plavix 75 mg Oral tab 1 tab once daily [Active]; isosorbide mononitrate 30 mg Oral Tb24 3 tabs once daily [Active]; - PMHx: 22:39 Aneurysm; cardiac arrest; CVA; High Cholesterol; Hypertension; Seizures; COPD; aa1 - PSHx: 22:39 pacemaker; aa1 - Immunization history:: Adult Immunizations unknown. - Social history:: Smoking status: unknown. Screenin:20 Fall Risk Secondary diagnosis (15 points) seizures, intubated. IV access (20 points). mg2 22:20 Abuse screen: Denies threats or abuse. Denies injuries from another. Nutritional mg2 screening: No deficits noted. Tuberculosis screening: No symptoms or risk factors identified. Assessment: 20:59 Reassessment: ERP at ambulance bay with pt, per [facility] to bring pt directly to CT at [facility] this time. General: Appears in no apparent distress. Behavior is listless. Neuro: Level of Consciousness is awake, listless, Speech no verbal response. Respiratory: Airway is patent Respiratory effort is shallow. 21:05 Reassessment: Pt began seizing in CT. IV initiated on CT table and pt medicated with aa1 Ativan IVP. Once seizure activity ceased pt is noted to have agonal respirations. Ventilation assisted with BVM at this time and pt moved back to ED for intubation. Dr. Muhammad present at bedside at RT paged for intubation. 21:20 Patient has been NPO before screening. The patient is not alert and/or unable to follow aa1 commands. Bedside swallow screen discontinued. Patient kept NPO until cleared by Speech Therapy or Physician. intubated intubated n/a n/a n/a n/a The patient failed the bedside swallow screening. The patient will be kept NPO until cleared by Speech Therapy or Physician. Provider notified of bedside swallow screening results: Bertin Muhammad MD. 21:23 Reassessment: Patient appears in no apparent distress at this time. Pt taken back to CT aa1 at this time to reattempt CT scan. Respiratory: Airway via oral intubation Respiratory effort is shallow, Respiratory pattern is symmetrical. 21:45 Reassessment: Patient appears in no apparent distress at this time. Pt back from CT. aa1 Pain: Unable to use pain scale. FLACC scale score is 0 out of 10. Patient is intubated. Neuro: Level of Consciousness is unresponsive. Cardiovascular: Heart tones S1 S2 present Rhythm is regular. Respiratory: Airway via oral intubation Respiratory effort is shallow, Respiratory pattern is symmetrical, Breath sounds are clear bilaterally. GI: Abdomen is round Oral gastric tube in place, to suction. : No deficits noted. Derm: Skin is intact, is healthy with good turgor, Skin is pink, warm \\T\\ dry. Musculoskeletal: Capillary refill < 3 seconds. 21:45 T-PA (Activase) Screening: Contraindications: Seizure at onset of stroke or other aa1 uncontrolled chronic seizure disorder: Yes. Is the patient on a "statin" medication: Yes. 22:39 Reassessment: tried to insert tierney and straight catheter for urine tests but failed. mg2 22:39 Reassessment: report called to Lizett YANG at [place] [id number] Bed 6. bb 22:45 Reassessment: Patient appears in no apparent distress at this time. No changes from aa1 previously documented assessment. [facility] present at bedside for transfer. Vital Signs: 21:11 Pulse 114; Resp 20 A; Pulse Ox 95% on BVM; aa1 21:30 BP 181 / 100; Pulse 102; Resp 13; Pulse Ox 98% on ETT vent; mg2 21:46 BP 178 / 93; Pulse 103; Resp 13; Pulse Ox 98% on ETT vent; mg2 22:00 BP 144 / 80; Pulse 99; Resp 13; Pulse Ox 99% on ETT vent; mg2 22:15 BP 145 / 92; Pulse 102; Resp 13; Temp 99.6(R); Pulse Ox 100% on ETT vent; mg2 22:41 Weight 117 kg (R); mg2 22:51 BP 167 / 89; Pulse 100; Resp 15 A; Pulse Ox 97% on 100% FiO2 ETT vent; bb 23:00 BP 155 / 93; Pulse 98; Resp 16 A; Pulse Ox 97% on ETT vent; aa1 23:25 BP 142 / 98; Pulse 99; Resp 22; Pulse Ox 98% on ETT vent; aa1 Mario Alberto Coma Score: 20:59 Eye Response: spontaneous(4). Verbal Response: none(1). Motor Response: withdraws from aa1 pain(4). Total: 9. 21:26 Eye Response: none(1). Verbal Response: none(1). Motor Response: none(1). Total: 3. tw4 NIH Stroke Scale Scores: 21:20 NIHSS Score: 19 aa1 ED Course: 20:59 Patient arrived in ED. aa1 20:59 Arm band placed on left wrist. Patient Pt taken to CT. aa1 20:59 RN/THERAPY ADMINISTRATIVE ASSISTANT escort patient out of department to CT scan with oxygen, cardiac nurse specialist, [facility].aa1 21:03 Inserted saline lock: 20 gauge in left hand, using aseptic technique. aa1 21:12 Inserted saline lock: 20 gauge in right hand, using aseptic technique. Blood collected. mg2 21:14 Assisted provider with intubation using 7.5 mm ETT via oral route. ET tube secured at mg2 22cm at the gums. Set up intubation tray. Intubated by Bertin Muhammad MD Placement verified by CXR, CO2 detector w/ + color change, auscultating bilateral breath sounds, Patient tolerated well. 21:15 Patient has correct armband on for positive identification. Placed in gown. Bed in low mg2 position. Side rails up X2. 21:15 monitoring coordinator on. Pulse ox on. NIBP on. mg2 21:16 EKG done, by ED staff, reviewed by Bertin Muhammad MD. aa1 21:18 Bertin Muhammad MD is Attending Physician. rg2 21:20 NGT: inserted 16 Fr. other orally verified placement of air over stomach, to aa1 intermittent suction. Returned gastric contents. by Marcelina Cline RN. 21:23 RN/THERAPY ADMINISTRATIVE ASSISTANT escort patient out of department to CT scan with Ambu bag, oxygen, cardiac aa1 monitor, Respiratory therapist, another RN. 21:42 CT Stroke Brain w/o Contrast In Process Unspecified. EDMS 21:47 Stroke CXR 1 View In Process Unspecified. EDMS 22:19 Inserted saline lock: 18 gauge in left wrist, using aseptic technique. mg2 22:29 Triage completed. aa1 22:30 Patient transferred, IV remains in place. aa1 23:26 Tierney cath inserted, using sterile technique, by nj, balloon inflated, to gravity mg2 drainage, urine specimen collected. other FR. 8. 23:33 Glory Bejarano, RN is Primary Nurse. aa1 Administered Medications: 21:05 Drug: Ativan 2 mg Route: IVP; Site: left hand; aa1 21:35 Follow up: Response: No adverse reaction; Marked relief of symptoms aa1 21:13 Drug: Etomidate 20 mg Route: IVP; Site: left hand; aa1 21:30 Follow up: Response: No adverse reaction aa1 21:13 Drug: VecuroNIUM 10 mg Route: IVP; Site: left hand; aa1 21:30 Follow up: Response: No adverse reaction aa1 21:17 Drug: Versed 2 mg Route: IVP; Site: left hand; aa1 21:30 Follow up: Response: Marked relief of symptoms aa1 21:22 Drug: Propofol 5 mcg/kg/min Route: IV; Rate: calculated rate; Site: left hand; aa1 22:45 Follow up: Rate change 30 mcg/kg/min aa1 23:07 Follow up: IV Status: Infusion continued upon transfer aa1 23:10 Follow up: Rate change 40 mcg/kg/min aa1 22:30 CANCELLED (Physician Discretion): Fosphenytoin 20 mg pe/kg IV at calculated rate once; tw4 administer at a rate not to exceed 100 mg PE per minute 22:50 Not Given (Hemodynamic Parameters): Labetalol 20 mg IVP once over 2 mins bb 23:25 Drug: Keppra 1000 mg Route: IV; Rate: calculated rate; Site: right wrist; bb 23:46 Follow up: IV Status: Completed infusion; IV Intake: 100ml bb 23:35 Drug: Versed 2 mg Route: IVP; Site: left hand; bb 23:46 Follow up: Response: Marked relief of symptoms bb 23:45 CANCELLED (Other Intervention Used): Keppra 20 mg/kg IV at calculated rate once; not to bb exceed 2,500 milligrams administer over 15 minutes Intake: 23:46 IV: 100ml; Total: 100ml. bb Outcome: 22:10 ER care complete, transfer ordered by . [email or web address] 23:48 Transferred by ground EMS to [facility]. aa1 23:48 Condition: stable 23:48 Discharge instructions given to family, Instructed on the need for transfer, Demonstrated understanding of instructions. 23:48 Patient left the ED. aa1 NIH Stroke Scale - NIH Stroke Score Date: 07/16/2017 Time: 21:20 Total Score = 19 1a. Level of Consciousness (LOC) - 3(Unresponsive) 1b. Level of Consciousness (LOC) (Year \\T\\ Age) - 2(Neither) 1c. LOC Commands (Open \\T\\ Closes Eyes/Associate Loan Officer) - 2(Neither) 2. Best Gaze (Lateral Gaze Paresis) - 0(Normal) 3. Visual Field Loss - 0(No visual loss) 4. Facial Palsy - 0(Normal) 5a. Left Arm: Motor (10-second hold) - 3(No effort against gravity) 5b. Right Arm: Motor (10-second hold) - 3(No effort against gravity) 6a. Left Leg: Motor (5-second hold - always test supine) - 3(No effort against gravity) 6b. Right Leg: Motor (5-second hold - always test supine) - 3(No effort against gravity) 7. Limb Ataxia (finger/nose \\T\\ heel/rose - test with eyes open) - 0(Absent) 8. Sensory Loss (pinprick arms/legs/face) - 0(Normal) 9. Best Language: Aphasia (description/naming/reading) - 0(No aphasia) 10. Dysarthria (speech clarity - read or repeat words) - 0(Normal) 11. Extinction and Inattention (visual/tactile/auditory/spatial/personal) - 0(No abnormality) Initials: aa1 Signatures: Dispatcher [employer] Sylvia Singh rg2 Glory Bejarano RN RN aa1 Cierra Walls RN RN bb Bertin Muhammad MD MD tw4 Aubrey Rogel RN RN mg2 Corrections: (The following items were deleted from the chart) 22:08 21:07 Patient arrived in ED. rg2 aa1 22:22 22:19 Inserted saline lock: 18 gauge in left hand, using aseptic technique. mg2 mg2 22:42 22:15 BP 145 / 92; Pulse 102bpm; Resp 13bpm; Pulse Ox 100% ET / Ventilator; mg2 Temp 99.6F; mg2 22:47 22:41 110 kg Reported; bb mg2 22:49 20:59 RN/THERAPY ADMINISTRATIVE ASSISTANT escort patient out of department to CT scan aa1 aa1 23:31 21:12 Inserted saline lock: 20 gauge in left hand, using aseptic technique. mg2 aa1 23:39 21:45 Respiratory: Airway via oral airway Respiratory effort is shallow, aa1 Respiratory pattern is symmetrical, Breath sounds are clear bilaterally. aa1 23:53 21:20 Patient has been NPO before screening. The patient is not alert and/or aa1 unable to follow commands. Bedside swallow screen discontinued. Patient kept NPO until cleared by Speech Therapy or Physician. aa1 07/17 00:07 00:05 The onset of the patients symptoms was aa1 aa1 00:11 00:09 Patient left the ED. aa1 aa1
[2017-07-16] MEDS ORDERED: FOSPHENYTOIN PE 500 MG/10 ML VIAL ONE (22:17)
[2017-07-16] MEDS ORDERED: NA CHLORIDE 0.9% 0 ML IV ONE (22:17)
[2017-07-16] MEDS ORDERED: LEVETIRACETAM 500 MG/5 ML VIAL IV ONE ×3 (22:43→23:00)
[2017-07-16] MEDS ORDERED: NA CHLORIDE 0.9% 100 ML IV ONE (22:43)
[2017-07-16] MEDS ORDERED: LABETALOL 20 MG/4ML SYRINGE IV ONE (22:44)
[2017-07-16 23:50] LABS: Urine Blood 2+ (NEG); Urine Glucose NEGATIVE (NEG); Urine Protein 3+ (NEG); Urine Specific Gravity >1.030 (1.005-1.030)
[2017-07-17 00:09] LABS: Urine Bacteria >50 /HPF (NONE SEEN); Urine Culture Reflex Order REFLEXED; Urine RBC >50 /HPF (NONE SEEN); Urine Sperm PRESENT (NONE SEEN)
--- NOTE | 2017-07-17 06:56 | EKG ---
Test Date: 2017-07-16 Test Time: 21:19:31 Ems Manager: MIKE MEASUREMENT RESULTS: Intervals: Rate: 98 MS: 216 QRSD: 64 QT: 340 QTc: 434 [place]: P: 68 MS: 216 QRS: -13 T: 50 INTERPRETIVE STATEMENTS: Sinus rhythm with 1st degree AV block Possible Inferior infarct, age undetermined Abnormal ECG Compared to ECG 10/10/2016 07:45:46 Myocardial infarct finding now present Electronically Signed On 07-17-17 06:55:28 CDT by James Briggs
--- NOTE | 2017-07-17 12:28 | EKG ---
Test Date: 2017-07-16 Test Time: 21:22:40 [employer] Design Engineer: MIKE MEASUREMENT RESULTS: Intervals: Rate: 102 RI: 188 QRSD: 60 QT: 336 QTc: 437 [place]: P: 80 RI: 188 QRS: -6 T: 43 INTERPRETIVE STATEMENTS: Sinus tachycardia Cannot rule out Inferior infarct, age undetermined Abnormal ECG Compared to ECG 07/16/2017 21:19:31 Sinus rhythm no longer present First degree AV block no longer present Myocardial infarct finding still present Electronically Signed On 07-17-17 12:27:54 CDT by James Briggs
== END 2017-07-17 00:09 | disposition short-term general hospital (02) ==
LOC: ER 21:03
PROC: 0BH17EZ Insertion of Endotracheal Airway into Trachea, Via Natural or Artificial Opening (ICD-10-PCS; principal; 2017-07-17)
PROC: 5A1935Z Respiratory Ventilation, Less than 24 Consecutive Hours (ICD-10-PCS; 2017-07-17)
DX: G40.911 Epilepsy, unspecified, intractable, with status epilepticus (principal); I10 Essential (primary) hypertension; J44.9 Chronic obstructive pulmonary disease, unspecified; Z95.0 Presence of cardiac pacemaker; Z79.01 Long term (current) use of anticoagulants; Z79.82 Long term (current) use of aspirin; Z88.5 Allergy status to narcotic agent; Z88.8 Allergy status to other drugs, medicaments and biological substances; Z86.73 Personal history of transient ischemic attack (TIA), and cerebral infarction without residual deficits
CPT/HCPCS: 31500; 36415; 51702; 70450; 71045; 80048; 85025; 85610; 85730; 87086; 87088; 93005 ×2; 94002; 99291; J1953; J2250 ×2; 81003; 81015; Q2009